=== PATIENT | female | born 1985 | race American Indian/Alaskan Native ===

== ENCOUNTER 2016-04-09 19:31 | Emergency (ER) | payer SELFPAY ==
[2016-04-09 20:59] LABS: Basophils % (Auto) 0.7 % (0.0-1.8); Eosinophils % (Auto) 0.8 % (0.0-4.3); Hematocrit 39.1 % (30.3-42.9); Mean Corpuscular HGB Conc 33 % (30-34); Mean Corpuscular Hemoglobin 29 pg (28-32); Mean Corpuscular Volume 86 fl (79-97); Platelet Count 442 K/mm3 (140-440); Red Blood Count 4.54 M/mm3 (3.65-5.03); Red Cell Distribution Width 13.7 % (13.2-15.2); White Blood Count 11.9 K/mm3 (4.5-11.0)
[2016-04-09 21:18] LABS: Alanine Aminotransferase 10 units/L (7-56); Albumin/Globulin Ratio 1.1 %; Alkaline Phosphatase 74 units/L (35-129); Anion Gap 19 mmol/L; BUN/Creatinine Ratio 11.25; Bilirubin,Total 0.3 mg/dL (0.1-1.2); Blood Urea Nitrogen 9 mg/dL (7-17); Carbon Dioxide 24 mmol/L (22-30); Chloride 100.9 mmol/L (98-107); Glucose 91 mg/dL (65-100); Lipase 15 units/L (13-60); Potassium 3.8 mmol/L (3.6-5.0); Sodium 140 mmol/L (137-145); Total Protein 7.8 g/dL (6.3-8.2)
--- NOTE | 2016-04-10 04:58 | Emergency Department Report ---
ED Abdominal Pain HPI - General Chief Complaint: Abdominal Pain Stated Complaint: FLANK PAIN Time Seen by Provider: 04/10/16 04:51 Source: patient Mode of arrival: Ambulatory Limitations: No Limitations - History of Present Illness Initial Comments: 31M PMH none p/w c/o x4 days of right sided flank pain, dysuria, painful voiding , nausea and vomiting. Denies any past history of renal colic/kidney stones. Denies any fever or chills. That she was taking Motrin at home with minimal relief MD Complaint: flank pain Onset/Timin -: days(s) Location: R flank Radiation: R flank Migration to: suprapubic Severity: severe Severity scale (0 -10): 7 Quality: aching, sharp Consistency: constant Improves With: nothing Worsens With: nothing Associated Symptoms: nausea, vomiting, chills, dysuria - Related Data Previous Rx's Medication Instructions Recorded Last Taken Type Nitrofurantoin [place]/M-Cryst 100 mg PO Q12HR #14 capsule 04/10/16 Unknown Rx [Macrobid CAP] oxyCODONE /ACETAMINOPHEN [Percocet 1 tab PO Q6HR PRN #14 tablet 04/10/16 Unknown Rx 5/325] Allergies Allergy/AdvReac Type Severity Reaction Status Date / Time No Known Allergies Allergy Unverified 12/12/12 13:55 ED Review of Systems ROS: Stated complaint: FLANK PAIN Other details as noted in HPI Constitutional: denies: chills, fever Eyes: denies: eye pain, eye discharge, vision change ENT: denies: ear pain, throat pain Respiratory: denies: cough, shortness of breath, wheezing Cardiovascular: denies: chest pain, palpitations Endocrine: no symptoms reported Gastrointestinal: denies: abdominal pain, nausea, diarrhea Genitourinary: as per HPI (right-sided flank pain), dysuria. denies: urgency, discharge Musculoskeletal: denies: back pain, joint swelling, arthralgia Skin: denies: rash, lesions Neurological: denies: headache, weakness, paresthesias Psychiatric: denies: anxiety, depression Hematological/Lymphatic: denies: easy bleeding, easy bruising ED Past Medical Hx - Past Medical History Previous Medical History?: No Hx Hypertension: No Hx Congestive Heart Failure: No Hx Diabetes: No Hx Deep Vein Thrombosis: No Hx Renal Disease: No Hx Sickle Cell Disease: No Hx Seizures: No Hx Asthma: No Hx COPD: No Hx HIV: No - Surgical History Past Surgical History?: No - Social History Smoking Status: Never Smoker Substance Use Type: None - Medications Home Medications: Home Medications Medication Instructions Recorded Confirmed Last Taken Type Nitrofurantoin [place]/M-Cryst 100 mg PO Q12HR #14 capsule 04/10/16 Unknown Rx [Macrobid CAP] oxyCODONE /ACETAMINOPHEN [Percocet 1 tab PO Q6HR PRN #14 tablet 04/10/16 Unknown Rx 5/325] ED Physical Exam - General Limitations: No Limitations General appearance: alert, in no apparent distress - Head Head exam: Present: atraumatic, normocephalic - Eye Eye exam: Present: normal appearance, PERRL, EOMI - ENT ENT exam: Present: mucous membranes moist - Neck Neck exam: Present: normal inspection - Respiratory Respiratory exam: Present: normal lung sounds bilaterally. Absent: respiratory distress - Cardiovascular Cardiovascular Exam: Present: regular rate, normal rhythm. Absent: systolic murmur, diastolic murmur, rubs, gallop - GI/Abdominal GI/Abdominal exam: Present: soft, normal bowel sounds - Extremities Exam Extremities exam: Present: normal inspection - Back Exam Back exam: Present: normal inspection, CVA tenderness (R) (right-sided CVA tenderness) - Neurological Exam Neurological exam: Present: alert, oriented X3, CN II-XII intact - Psychiatric Psychiatric exam: Present: normal affect, normal mood - Skin Skin exam: Present: warm, dry, intact, normal color. Absent: rash ED Course Vital Signs 04/09/16 04/10/16 04/10/16 20:32 03:20 03:28 Temperature 98.2 F 98.3 F 98.4 F Pulse Rate 78 60 69 Respiratory 18 18 18 Rate Blood Pressure 150/98 142/82 Blood Pressure 131/77 [Right] O2 Sat by Pulse 100 100 98 Oximetry 04/10/16 04/10/16 03:51 05:32 Temperature Pulse Rate Respiratory 18 18 Rate Blood Pressure Blood Pressure [Right] O2 Sat by Pulse 100 Oximetry ED Medical Decision Making - Lab Data Result diagrams: 04/09/16 20:49 04/09/16 20:40 - Medical Decision Making A/P: Renal colic 1-case discussed with Dr. Kat, as per Dr. Kat it is reasonable to DC pt with analgesia and ABX and f/u with even with hydronephrosis and hydroureter. i made Dr. Kat aware of these CT findings. 2-treat patient empirically, Percocet when necessary for pain, Macrobid twice a day 7 days, Zofran ODT when necessary 3-I advised patient to follow up as soon as possible with urology, provided her with referral information. I advised her to return to the ED if she develops fever or chills or inability to void any urine, inability to tolerate anything by mouth 4-urine culture sent Critical care attestation.: If time is entered above; I have spent that time in minutes in the direct care of this critically ill patient, excluding procedure time. ED Disposition Clinical Impression: Kidney stone on right side Disposition: DISCHARGED TO HOME OR SELFCARE Is pt being admited?: No Does the pt Need Aspirin: No Condition: Stable Instructions: Abdominal Pain (ED), Kidney Stones (ED), Renal Colic (ED), Flank Pain (ED) Additional Instructions: She advised to call for urology follow-up as soon as possible due to kidney stone Prescriptions: Nitrofurantoin [place]/M-Cryst [Macrobid CAP] 100 mg PO Q12HR #14 capsule oxyCODONE /ACETAMINOPHEN [Percocet 5/325] 1 tab PO Q6HR PRN #14 tablet PRN Reason: Pain Referrals: PRIMARY CAREMD [Primary Care Provider] - 3-5 Days [facility] [Provider Group] - 3-5 Days RAÚL ORELLANA MD [Staff Physician] - 3-5 Days Forms: Accompanied Note, Work/School Release Form(ED) Time of Disposition: 06:58
[2016-04-10] MEDS ORDERED: ZOFRAN IV ONE (05:00)
[2016-04-10] MEDS ORDERED: TORADOL IV ONE (05:00)
[2016-04-10] MEDS ORDERED: NACL 0.9% 1000 ML 1,000 ML IV ONE (05:00)
[2016-04-10 05:22] LABS: Bilirubin,Urine NEG (Negative); Blood,Urine LG (Negative); Ketones,Urine 20 mg/dL (Negative); Leukocyte Esterase,Urine TR (Negative); Mucus,Urine 3+ /HPF; Nitrite,Urine NEG (Negative); Urobilinogen,Urine < 2.0 mg/dL (<2.0)
[2016-04-10 05:23] LABS: RBC,Urine > 182.0 /HPF (0.0-6.0)
--- NOTE | 2016-04-10 06:17 | Cat Scan Report ---
FINAL REPORT PROCEDURE: CT ABDOMEN PELVIS WO CON TECHNIQUE: Computerized axial tomography of the abdomen and pelvis was performed without intravenous contrast. This study is performed without intravascular contrast material and its sensitivity for abdominal and pelvic pathology, including neoplasms, inflammation, abscess, free fluid, thrombosis, arterial dissection and infarction, is reduced compared with a contrast enhanced study. HISTORY: ? right side kidney stone COMPARISON: No prior studies are available for comparison. FINDINGS: Visualized lower thorax: No significant abnormality. Liver: Normal size and attenuation. Spleen: Normal size and attenuation. Gallbladder and biliary system: Normal. Pancreas: Normal. Adrenals: Normal. Kidneys: The kidneys have normal size. Moderate right hydronephrosis and hydroureter down to a 9 millimeter stone just above the right ureteral vesicle junction. No renal masses.. GI tract: The stomach is normal. The small bowel has a normal caliber. No obstruction, ileus or enteritis. The cecum, appendix and colon are normal.. Lymph nodes and mesentery: Normal. Vasculature: Normal. Bladder: Normal. Reproductive organs: The uterus is normal. There is a 4 centimeter cyst on the right ovary. A small 1 centimeter cyst on the left ovary is noted.. Peritoneum: No free fluid. Musculoskeletal structures: No significant abnormality. Other: None. IMPRESSION: There is moderate right hydronephrosis and hydroureter down to a 9 millimeter stone just above the right ureteral vesicle junction. There is a 4 centimeter cyst on the right ovary. A small 1 centimeters cyst on the left ovary. The uterus is normal..
[2016-04-10] MEDS ORDERED: MORPHINE IV ONE (07:04)
[2016-04-10 07:54] VITALS: BP 138/78
== END 2016-04-10 07:55 | disposition home or self-care (01) ==
LOC: ED 19:31
DX: N20.0 Calculus of kidney (principal)
CPT/HCPCS: 36415; 74176; 80053; 81001; 81025; 83690; 85025; 87086; 96361; 96374; 96375; 99284; J1885; J2405; J7030; J2270